=== PATIENT | male | born 1995 | race Caucasian/White ===

== ENCOUNTER 2020-12-26 19:13 | Emergency (ER) | payer BC, OTHER ==
[2020-12-26 19:44] VITALS: RESP 18; TEMP 98
--- NOTE | 2020-12-26 20:12 | XR ---
EXAMINATION TYPE: XR chest 2V DATE OF EXAM: 12/26/2020 COMPARISON: NONE HISTORY: Fever TECHNIQUE: 2 views FINDINGS: Heart and mediastinum are normal. Lungs are clear. Diaphragm is normal. Bony thorax appears normal. IMPRESSION: Normal chest.
--- NOTE | 2020-12-26 20:48 | ED ---
General Adult HPI - General Chief complaint: Upper Respiratory Infection Stated complaint: Fever Time Seen by Provider: 12/26/20 19:47 Source: patient Mode of arrival: ambulatory Limitations: no limitations - History of Present Illness Initial comments: 25-year-old male presents to emergency Department with a chief complaint of a fever. States this started several days ago and has been intermittent in nature. He has been taking [id number] antipyretics with success. He states there has been a mild, intermittent, nonproductive cough. Denies any chest pain or shortness of breath. No smoking, history of COPD or asthma. He denies any other symptoms. States his had similar symptoms so he decided to come to the emergency department for a comatose. - Related Data Allergies Allergy/AdvReac Type Severity Reaction Status Date / Time No Known Allergies Allergy Verified 12/26/20 19:44 Review of Systems ROS Statement: Those systems with pertinent positive or pertinent negative responses have been documented in the HPI. ROS Other: All systems not noted in ROS Statement are negative. Past Medical History Past Medical History: No Reported History History of Any Multi-Drug Resistant Organisms: None Reported Past Surgical History: No Surgical Hx Reported Past Psychological History: No Psychological Hx Reported Smoking Status: Never smoker Past Alcohol Use History: None Reported Past Drug Use History: None Reported General Exam Limitations: no limitations General appearance: alert, in no apparent distress Head exam: Present: atraumatic, normocephalic, normal inspection Eye exam: Present: normal appearance, PERRL, EOMI Pupils: Present: normal accommodation ENT exam: Present: normal exam, normal oropharynx, mucous membranes moist, TM's normal bilaterally, normal external ear exam Neck exam: Present: normal inspection, full ROM. Absent: tenderness Respiratory exam: Present: normal lung sounds bilaterally. Absent: respiratory distress Cardiovascular Exam: Present: regular rate, normal rhythm, normal heart sounds Extremities exam: Present: normal inspection, full ROM, normal capillary refill. Absent: tenderness Back exam: Present: normal inspection, full ROM. Absent: tenderness Neurological exam: Present: alert, oriented X3, normal gait Psychiatric exam: Present: normal affect, normal mood Skin exam: Present: warm, dry, intact, normal color Course Vital Signs 12/26/20 19:42 Temperature 98.0 F Pulse Rate 97 Respiratory 18 Rate Blood Pressure 131/89 O2 Sat by Pulse 98 Oximetry Medical Decision Making - Medical Decision Making 25-year-old male presents to emergency Department with a chief complaint of a fever. He is cold positive. X-ray negative. Vitals within normal limits. Patient is well-appearing and no signs of respiratory distress. Patient advised to quarantine and take Tylenol for fever. Return parameters discussed with patient was understanding and agreeable. Case discussed with - Lab Data Lab Results 12/26/20 Range/Units 19:50 Coronavirus (PCR) Detected A (Not Detectd) Disposition Clinical Impression: COVID-19 Disposition: HOME SELF-CARE Condition: Stable Instructions (If sedation given, give patient instructions): Coronavirus Disease 2019 (COVID-19) Additional Instructions: Please return to the Emergency Department if symptoms worsen or any other concerns. Is patient prescribed a controlled substance at d/c from ED?: No Referrals: None,Stated [Primary Care Provider] - 1-2 days Time of Disposition: 20:49
[2020-12-26 21:29] VITALS: BP 134/89; PULSE 9
== END 2020-12-26 21:29 | disposition home or self-care (01) ==
LOC: EC 19:13
DX: U07.1 COVID-19 (principal)
CPT/HCPCS: 71046; 87635; 99283

== ENCOUNTER 2024-04-18 20:17 | Emergency (ER) | payer OTHER ==
[2024-04-18 20:36] VITALS: TEMP 97.9
--- NOTE | 2024-04-18 21:23 | ED ---
Chest Pain HPI - General Chief Complaint: Chest Pain Stated Complaint: shoulder pain, hot flashes Time Seen by Provider: 04/18/24 20:47 Source: patient, RN notes reviewed Mode of arrival: ambulatory Limitations: no limitations - History of Present Illness Initial Comments: 28-year-old male presenting to the ED with complaints of chest tightness. Patient states earlier tonight his face felt hot and flushed. Shortly after, states that he started to develop tightness of his left shoulder wrapping around to his chest. There is no associated shortness of breath, diaphoresis, or nausea at onset. States he started to think that this may be due to his heart and notes that he started to become nauseous following that. Did have 2 chewable aspirin prior to arrival reports tightness has improved however states that it is still there. Currently also notes of some nausea. Otherwise has been doing well over the past few days. Denies URI symptoms. Patient reports that he is otherwise healthy and does not take any medications on daily basis. No other complaints at this time. Patient is a non-smoker. - Related Data Allergies Allergy/AdvReac Type Severity Reaction Status Date / Time No Known Allergies Allergy Verified 04/18/24 20:36 Review of Systems ROS Statement: Those systems with pertinent positive or pertinent negative responses have been documented in the HPI. ROS Other: All systems not noted in ROS Statement are negative. Past Medical History Past Medical History: No Reported History History of Any Multi-Drug Resistant Organisms: None Reported Past Surgical History: No Surgical Hx Reported Additional Past Surgical History / Comment(s): Right arm surgeries Past Psychological History: No Psychological Hx Reported Smoking Status: Never smoker Past Alcohol Use History: Occasional Past Drug Use History: Marijuana General Exam Limitations: no limitations General appearance: alert, in no apparent distress Eye exam: Present: normal appearance Neck exam: Present: normal inspection Respiratory exam: Present: normal lung sounds bilaterally Cardiovascular Exam: Present: regular rate, normal rhythm GI/Abdominal exam: Present: soft, normal bowel sounds (Thank you). Absent: distended, tenderness, guarding, rebound, rigid Extremities exam: Present: normal inspection Back exam: Present: normal inspection Neurological exam: Present: alert, oriented X3 Skin exam: Present: warm, dry Course Vital Signs 04/18/24 04/18/24 04/18/24 20:31 21:48 22:01 Temperature 97.9 F Pulse Rate 90 97 89 Pulse Rate [ 84 Right Sitting Radial] Respiratory 16 18 18 Rate Blood Pressure 149/89 139/101 126/90 O2 Sat by Pulse 99 99 97 Oximetry - Reevaluation(s) Reevaluation #1: 04/18/24 21:45 Upon reevaluation, patient states all his symptoms have completely resolved. Chest Pain MDM - MDM Was pt. sent in by a medical professional or institution (, PA, AVIONICS SUPERVISOR, urgent care, hospital, or assisted...) When possible be specific @ -No Did you speak to anyone other than the patient for history (EMS, parent, family, police, friend...)? What history was obtained from this source @ -No Did you review nursing and triage notes (agree or disagree)? Why? @ -I reviewed and agree with nursing and triage notes Were old charts reviewed (outside hosp., previous admission, EMS record, old EKG, old radiological studies, urgent care reports/EKG's, assisted records)? Report findings @ -No old charts were reviewed Differential Diagnosis (chest pain, altered mental status, abdominal pain women, abdominal pain men, vaginal bleeding, weakness, fever, dyspnea, syncope, headache, dizziness, GI bleed, back pain, seizure, CVA, palpatations, mental health, musculoskeletal)? @ -Differential Chest Pain: Stable Angina, Unstable Angina, STEMI, NSTEMI Aortic Dissection, Pneumothorax, Musculoskeletal, Esophageal Spasm GERD, Cholecystitis, Pancreatitis, Zoster, this is not meant to be an all-inclusive list. EKG interpreted by me (3pts min.). @ -Interpreted me showing a sinus rhythm with nonspecific findings at a rate 85 bpm. KS 140, QRS 91, QT/QTc 341/383. X-rays interpreted by me (1pt min.). @ -Chest x-ray interpreted me which revealed no evidence of acute finding. CT interpreted by me (1pt min.). @ -None done U/S interpreted by me (1pt. min.). @ -None done What testing was considered but not performed or refused? (CT, X-rays, U/S, labs)? Why? @ -None What meds were considered but not given or refused? Why? @ -None Did you discuss the management of the patient with other professionals (professionals i.e. , PA, AVIONICS SUPERVISOR, lab, RT, psych nurse, nephrology social worker, carton forming machine helper, teacher, correction officer head, disease case manager rn)? Give summary @ -No Was smoking cessation discussed for >3mins.? @ -No Was critical care preformed (if so, how long)? @ -No Were there social determinants of health that impacted care today? How? (Homelessness, low income, unemployed, alcoholism, drug addiction, transportation, low edu. Level, literacy, decrease access to med. care, [facility], rehab)? @ -No Was there de-escalation of care discussed even if they declined (Discuss DNR or withdrawal of care, Hospice)? DNR status @ -No What co-morbidities impacted this encounter? (DM, HTN, Smoking, COPD, CAD, Cancer, CVA, ARF, Chemo, Hep., AIDS, mental health diagnosis, sleep apnea, morbid obesity)? @ -None Was patient admitted / discharged? Hospital course, mention meds given and route, prescriptions, significant lab abnormalities, going to OR and other pertinent info. @ -Discharge 28-year-old male presented to the ED with complaints of left shoulder/left chest tightness. Patient is a non-smoker and has no risk factors. Laboratory studies reviewed. CBC CMP UA serology panel unremarkable. Troponin x 2 undetectable. At this time patient reports he is completely symptom-free. Unlikely cardiac in nature. Discharged home in stable condition advised to closely follow-up with his PCP. Discussed return precautions and patient verbalized agreement. Undiagnosed new problem with uncertain prognosis? @ -No Drug Therapy requiring intensive monitoring for toxicity (Heparin, Nitro, Insulin, Cardizem)? @ -No Were any procedures done? @ -No Diagnosis/symptom? @ -Chest pain Acute, or Chronic, or Acute on Chronic? @ -Acute Uncomplicated (without systemic symptoms) or Complicated (systemic symptoms)? @ -Uncomplicated Side effects of treatment? @ -No Exacerbation, Progression, or Severe Exacerbation? @ -No Poses a threat to life or bodily function? How? (Chest pain, [place], DC, pneumonia, PE, COPD, DKA, ARF, appy, cholecystitis, CVA, Diverticulitis, Homicidal, Suicidal, threat to staff... and all critical care pts) @ -No Disposition Clinical Impression: Chest pain Disposition: HOME SELF-CARE Condition: Good Instructions (If sedation given, give patient instructions): Chest Pain (ED) Additional Instructions: Please return to the Emergency Department if symptoms worsen or any other concerns. Please follow-up with your primary care provider. Is patient prescribed a controlled substance at d/c from ED?: No Referrals: None,Stated [Primary Care Provider] - 1-2 days Time of Disposition: 00:47
[2024-04-18] MEDS: ASPIRIN 81 MG PO STA (21:42)
[2024-04-18] MEDS: SODIUM CHLORIDE 0.9% 1,000 ML IV STA (21:42)
[2024-04-18] MEDS: ONDANSETRON 4 MG/2 ML VIAL IVP STA (21:43)
[2024-04-18 21:54] VITALS: RESP 18
[2024-04-18 22:03] VITALS: BP 126/90; PULSE 89
[2024-04-18 22:07] LABS: Basophils % (A) 0 %; Eosinophils # (A) 0.1 k/uL (0-0.7); Eosinophils % (A) 2 %; HCT 45.2 % (39.0-53.0); HGB 15.1 gm/dL (13.0-17.5); Lymphocytes # (A) 1.3 k/uL (1.0-4.8); Lymphocytes % (A) 21 %; MCH 26.9 pg (25.0-35.0); MCHC 33.4 g/dL (31.0-37.0); MCV 80.8 fL (80.0-100.0); Mean Platelet Volume 7.1; Monocytes # (A) 0.3 k/uL (0-1.0); Monocytes % (A) 5 %; Neutrophils # (A) 4.4 k/uL (1.3-7.7); Neutrophils % (A) 70 %; Platelet Count 224 k/uL (150-450); RBC 5.59 m/uL (4.30-5.90); RDW 12.7 % (11.5-15.5); WBC 6.3 k/uL (3.8-10.6)
[2024-04-18 22:22] LABS: Appearance,Urine Clear (Clear); Bilirubin,Urine Negative (Negative); Blood,Urine Negative (Negative); Color,Urine Colorless; Glucose,Urine (UA) Negative (Negative); Ketones,Urine Negative (Negative); Leukocyte Esterase,Urine Negative (Negative); Nitrite,Urine Negative (Negative); Protein,Urine Negative (Negative); Specific Gravity,Urine 1.002 (1.001-1.035); Urobilinogen,Urine <2.0 mg/dL (<2.0)
[2024-04-18 22:23] LABS: Partial Thromboplastin Time 27.4 sec (22.0-30.0); Prothrombin Time 10.7 sec (10.0-12.5)
[2024-04-18 22:26] LABS: ALT 23 U/L (4-49); AST 28 U/L (17-59); African American GFR (CKD) >90 (>60 ml/min/1.73 sqM); Albumin 4.5 g/dL (3.5-5.0); Alkaline Phosphatase 85 U/L (38-126); Anion Gap 7 mmol/L; Blood Urea Nitrogen 13 mg/dL (9-20); Calcium 9.7 mg/dL (8.4-10.2); Carbon Dioxide 26 mmol/L (22-30); Chloride 106 mmol/L (98-107); Glucose 150 mg/dL (74-99); Magnesium 1.9 mg/dL (1.6-2.3); Non-African American GFR(CKD) >90 (>60 ml/min/1.73 sqM); Potassium 3.8 mmol/L (3.5-5.1); Sodium 139 mmol/L (137-145); Total Bilirubin 0.4 mg/dL (0.2-1.3); Total Protein 7.8 g/dL (6.3-8.2)
--- NOTE | 2024-04-18 22:55 | XR ---
EXAMINATION TYPE: XR chest 2V DATE OF EXAM: 04/18/2024 9:08 PM CLINICAL INDICATION:Male, 28 years old with history of Chest Pain; [facility] COMPARISON: 12/26/2020 TECHNIQUE: XR chest 2V. Frontal and lateral views of the chest.. FINDINGS: Lines/Tubes/Devices: No indwelling lines are seen. Heart/mediastinum: Heart size is normal. Mediastinum appears normal. Pulmonary vascularity: Not increased, Lungs/Pleura: There is no evidence of pleural effusion, focal consolidation, or pneumothorax. Musculoskeletal: No acute osseous abnormality demonstrated in the limits of the exam. Other findings: None. IMPRESSION: No acute cardiopulmonary abnormality.
== END 2024-04-19 00:55 | disposition home or self-care (01) ==
LOC: EC 20:17
DX: R07.89 Other chest pain (principal); F12.90 Cannabis use, unspecified, uncomplicated; Z11.52 Encounter for screening for COVID-19
CPT/HCPCS: 36415; 93005; 80053; 83735; 84484; 85025; 85610; 85730; 81003; 87636; 71046; 99285; 96374; 96361 ×3; J2405